=== PATIENT | female | born 1970 ===

== ENCOUNTER 2024-04-11 13:28 | Outpatient (AMB) | payer OTHER, SELFPAY ==
--- NOTE | 2024-04-11 13:47 | MHC.OFFWIV ---
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 Patient Tobacco Use Status: Never used Tobacco Allergies Penicillins Adverse Reaction (Mild, Verified 04/11/24 13:59) Unknown procaine Adverse Reaction (Verified 04/11/24 13:59) unknown HPI HPI Comments History of Present Illness Details History of Present Illness The patient is a 53-year-old female presenting with urinary symptoms possibly related to a urinary tract infection. She reports that since April 02, she has experienced a sensation of a full bladder but is unable to urinate upon reaching the bathroom. Subsequently, she has been consuming approximately three glasses of water at work, leading to urination every 10 to 15 minutes throughout the day. She attempted Persian herbal medication at home, which reduced urination frequency to approximately every one to two hours, though she continues to experience a persistent urge. She notes suprapubic bloating and tenderness. On the first day of symptoms, there was mild burning upon urination, but no fever. She denies new-onset low back pain beyond her chronic condition, which includes a herniated disc, and has no history of kidney stones. Allergy to penicillin has been noted based on prior advice from a doctor in [place], though she has no known reaction. A video interpretor was used for this visit Physical Exam General: Cooperative, healthy appearing, comfortable, no acute distress and well developed Orientation: Patient oriented x3 Limitations: non togolese speaking Head: Normal to inspection Ears: Hearing grossly normal bilaterally Nose: Normal external nose present Face and sinus: Normal facial exam Eyes: Appearance normal, both eyes and all related structures Neck: Normal visual inspection and Yes full ROM Respiratory: Normal respiratory effort and able to speak in complete sentences. GI: suprapubic ttp Back: negative CVA tenderness bilaterally Skin: No rashes or lesions noted Neuro: Patient oriented x3 Extremities: Normal to inspection PFSH Social History Patient Tobacco Use Status: Never used Tobacco Review of Systems Const All systems reviewed & are unremarkable except as noted in HPI and below Physical Exam Vital Signs: Last Vital Signs Pulse 112 H 04/11/24 13:53 BP 140/90 H 04/11/24 13:53 Pulse Ox 96 04/11/24 13:53 Oxygen Delivery Method Room Air 04/11/24 13:53 Assessment & Plan Assessment & Plan (1) UTI (urinary tract infection): Code(s): N39.0 - Urinary tract infection, site not specified Qualifiers: Urinary tract infection type: acute cystitis Hematuria presence: with hematuria Qualified Code(s): N30.01 - Acute cystitis with hematuria Plan: Plan - UA + leuks and blood, will treat. No culture indicated. - Prescribe a cephalosporin antibiotic to treat the suspected urinary tract infection, to be taken every 12 hours for 5 days. - Advise the patient to seek emergency care if she develops a fever, or if her pain escalates, indicating potential kidney stones. - Allergy to penicillin is acknowledged; caution is advised though cross-reactivity with cephalosporins is considered rare. - The antibiotic has been sent to [facility] for initiation of treatment. Patient was informed and verbally consented to the use of an ambient scribe for clinic note documentation during this visit. Medications: New cefuroxime axetil 500 mg PO Q12H 10 tabs 0RF Coding Level of Care Code New Pt Level 4 (43109) Diagnoses Acute cystitis with hematuria N30.01 Urinary tract infection type: acute cystitis Hematuria presence: with hematuria
[2024-04-11 13:53] VITALS: BP 140/90; PULSE 112; O2SAT 96
== END 2024-04-11 14:29 | disposition home or self-care (01) ==
PROVIDERS: Visit Provider Physician Assistant
DX: N30.01 Acute cystitis with hematuria (principal); Z13.9 Encounter for screening, unspecified

== ENCOUNTER → 2024-04-11 13:28 | Outpatient (BNVA) | payer OTHER, SELFPAY | PROVIDERS: Visit Provider Physician Assistant | DX: N30.01 Acute cystitis with hematuria (principal) | CPT/HCPCS: 81003 ==

== ENCOUNTER 2024-07-15 10:09 | Emergency (ER) | payer OTHER, SELFPAY ==
--- NOTE | 2024-07-15 10:30 | ED.NECK ---
HPI - Neck Pain/Injury General Chief Complaint: Skin/Abscess/Foreign Body Stated Complaint: FB IN THROAT, BREATHING NORMALLY,SAT 97% PER EMS Time Seen by Provider: 07/15/24 10:16 History of Present Illness HPI Narrative: Patient is a 54-year-old female with no significant past medical history patient was eating a piece of fish at 03:00 yesterday feels a foreign object stuck on the right side of her throat. Complaining of pain on swallowing. There is no difficulty with phonation. There is no difficulty with breathing. Patient is from home. Related Data Previous Rx's ?Medication ?Instructions ?Recorded cefuroxime axetil 500 mg tablet 500 mg PO Q12H #10 tabs 04/11/24 Allergies Allergy/AdvReac Type Severity Reaction Status Date / Time Penicillins AdvReac Mild Unknown Verified 07/15/24 10:39 procaine AdvReac unknown Verified 07/15/24 10:39 Review of Systems Review of Systems: Positive foreign body sensation to the back of the throat Yes all other systems are reviewed and are negative [facility] Past Medical History Attestation statement: The following information was validated with the patient. Social History Social History Patient Tobacco Use Status: Never used Tobacco Advance Directives: No Advance Directives Information Provided: Yes Physical Exam Vital Signs: Vital Signs: Last Vital Signs Temp 97.8 F 07/15/24 10:38 Pulse 83 07/15/24 10:38 Resp 16 07/15/24 10:38 BP 134/69 07/15/24 10:38 Pulse Ox 98 07/15/24 10:38 O2 Del Method Room Air 07/15/24 10:38 BMI result Body Mass Index 22.3 Appearance: Alert. Oriented X3. No acute distress. Eyes: Pupils equal, round and reactive to light. ENT: Pharynx normal. No foreign object observed. Neck: Normal inspection. Neck supple. No lymph nodes noted. No crepitus CVS: Normal heart rate and rhythm. Pulses normal. Normal S1 and S2 Respiratory: No respiratory distress. Breath sounds normal. No Wheezing. No rales Abdomen: Soft and nontender. No rigidity. No distention. good BS x4 Skin: Skin warm and dry. Normal skin color. Normal skin turgor. Extremities: No lower extremity edema. Neurovascular intact to all extremities. No Lacerations. No Rash Neuro: Oriented X 3. No motor deficit. No sensory deficit. Moving all extermities. No slurred speech Medications Administered Discontinued Medications Generic Name Dose Route Start Last Admin Trade Name Moustapha PRN Reason Stop Dose Admin Sodium Chloride 1,000 mls @ 999 mls/hr 07/15/24 10:30 07/15/24 11:18 Ns IV 07/15/24 11:30 999 mls/hr .Q1H1M BENITO Administration Medical Decision Making Medical Decision Making [facility] Narrative: Patient has a foreign body sensation to the back of the throat. I reviewed the x-ray report from urgent care question epiglottitis but the history not consistent as patient's symptoms only started after eating the fish. There is no fever no chills. No prodrome prior. Patient feels a foreign body sensation. Will unable to open the disc provided by urgent care. I spoke with Dr. Magaña from [facility] on-call at [facility]. Willing to see patient at 13:30 today. No ENT available at [facility]. Patient has no difficulty breathing. No difficulty with voice. Pain on swallowing. Differential Diagnosis Differential Diagnoses: The differential diagnosis associated with the presentation includes Admission/Observation Consideration of admission/observation: Escalation of care including admission/observation considered Consult Healthcare Provider Management of the patient was discussed with: Demand Planning Manager (ENT) Lab Data 07/15/24 10:53 07/15/24 10:53 Labs: Lab Results 07/15/24 Range/Units 10:53 RBC 4.84 (4.20-5.50) X10*6/uL Hgb 14.7 (12.0-16.0) g/dl Hct 41.3 (37.0-47.0) % MCV 85.3 (80.0-98.0) fL MCH 30.4 (27.0-33.0) pg MCHC 35.6 H (31.0-35.0) g/dl RDW 11.8 (11.0-16.0) % External Record Review External record reviewed: Office record Discharge Plan Discharge Clinical Impression: Foreign body in throat Patient Disposition: Home, Self-Care Instructions: Foreign Body Ingestion (ED) Additional Instructions: Please follow-up with ear nose and throat doctor at 13:30. The phone number given below. Prescriptions: No Action cefuroxime axetil 500 mg tablet 500 mg PO Q12H Qty: 10 0RF Referrals: Cole Sanches MD [Physician] - (Please follow-up today at 01:30 p.m.) Print Language: Cantonese Austrian
[2024-07-15 10:38] VITALS: BP 134/69; PULSE 83; RESP 16; TEMP 36.6; O2SAT 98; BMI 22.3
[2024-07-15] MEDS: 0.9 % Sodium Chloride 1,000 ML 999 ML IV (11:18)
[2024-07-15 11:38] LABS: Basophils Percent Auto 0.3 % (0-2); Eosinophils Absolute Auto 0.1 X10*3/uL (0.0-0.4); Hematocrit 41.3 % (37.0-47.0); Hemoglobin 14.7 g/dl (12.0-16.0); Imm Gran Abs Auto 0.01 X10*3/uL (0.00-0.03); Imm Gran Pct Auto 0.1 % (0.0-0.4); Lymphocytes Percent Auto 29.2 % (20-40); MANUAL DIFF FLAG SCAN; Mean Corpuscular HGB Conc 35.6 g/dl (31.0-35.0); Mean Corpuscular Hemoglobin 30.4 pg (27.0-33.0); Mean Corpuscular Volume 85.3 fL (80.0-98.0); Monocytes Absolute Auto 0.4 X10*3/uL (0.1-1.2); Monocytes Percent Auto 5.8 % (2-11); Neutrophils Absolute Auto 4.3 x10*3/uL (2.0-8.3); Neutrophils Percent Auto 63.6 % (45-73); PLT CLUMP 1; Red Blood Count 4.84 X10*6/uL (4.20-5.50); Red Cell Distribution Width 11.8 % (11.0-16.0); SCAN SMEAR FLAG 1
[2024-07-15 12:01] LABS: White Blood Count 6.8 X10*3/uL (4.8-10.8)
[2024-07-15 12:04] LABS: SLIDE REVIEW VERIFIED
== END 2024-07-15 13:48 | disposition home or self-care (01) ==
PROVIDERS: Emergency Provider Emergency Medicine Emergency Medical Services; PCP Registered Nurse
DX: T17.228A Food in pharynx causing other injury, initial encounter (principal); W44.F3XA Food entering into or through a natural orifice, initial encounter; Y93.9 Activity, unspecified; Y92.9 Unspecified place or not applicable; Y99.9 Unspecified external cause status
CPT/HCPCS: 36415; 85025; 99282; 99283

== ENCOUNTER 2025-02-06 08:19 | Outpatient (AMB) | payer OTHER, SELFPAY ==
[2025-02-06 08:22] VITALS: BP 122/80; PULSE 92; TEMP 36.6; O2SAT 98; BMI 22.3
--- NOTE | 2025-02-06 08:22 | MHC.OFFWIV ---
Intake Vital Signs 02/06/25 08:22 Height 5 ft Weight 114 lb BMI 22.3 BP 122/80 Blood Pressure Location Rt brachial Position Sitting Pulse 92 Pulse Source Pulse Oximeter Temp 97.8 F Pulse Oximetry (%) 98 Oxygen Delivery Method Room Air Intake Visit Reasons: EP-?uti Intake Note: Pt is here today c/o vaginal itchyness Patient Tobacco Use Status: Never used Tobacco Allergies Penicillins Adverse Reaction (Mild, Verified 02/06/25 08:23) Unknown procaine Adverse Reaction (Verified 02/06/25 08:23) unknown Medication List - Last Reviewed 02/06/25 by Mary Bach CMA amlodipine 2.5 mg PO DAILY irbesartan 300 mg PO DAILY HPI EP-?uti HPI Details History of Present Illness The patient is a 54-year-old female presenting with pelvic pressure and urinary symptoms. Pelvic pressure and urinary symptoms: - The patient reports experiencing pelvic pressure and issues related to urination. - Symptoms include a feeling of needing to urinate frequently, sometimes every one to two hours. - There is a sensation of incomplete bladder emptying and the constant urgency to urinate. - This condition has been ongoing for approximately one year, initially resolving last year before recurring. - There is an absence of pain, burning, or blood in the urine. Medical History: - Hypertension, treated with Amlodipine and Irbesartan. Problem List - Pelvic pressure and urinary symptoms - Hypertension Plan - Prescribed Detrol 2 mg capsules daily for bladder relaxation to alleviate urinary symptoms until specialist consultation. - Recommended an ultrasound to be performed under specialist management for further investigation of urinary symptoms. - Confirmed that there is no current infection affecting the urinary symptoms. - Noted upcoming urology appointment for specialized evaluation and care. - Patient is currently handling blood pressure well under current regimen of Amlodipine and Irbesartan. 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 motor intact Skin: Normal turgor PFSH Social History Patient Tobacco Use Status: Never used Tobacco Physical Exam Vital Signs: Last Vital Signs Temp 97.8 F 02/06/25 08:22 Pulse 92 02/06/25 08:22 BP 122/80 02/06/25 08:22 Pulse Ox 98 02/06/25 08:22 Oxygen Delivery Method Room Air 02/06/25 08:22 BMI result Body Mass Index 22.3 Results AMB Urinalysis, Automated UA Leukoctes 0 Twin/uL Last Edit by Mary Bach CMA on 02/06/25 08:47 UA Nitrite Negative Last Edit by Mary Bach, PENNY on 02/06/25 08:47 UA Urobilinogen 0.2 mg/dL Last Edit by Mary Bach, PENNY on 02/06/25 08:47 UA Protein 0 mg/dL Last Edit by Mary Bach, DIRECTOR OF VOCATIONAL TRAINING on 02/06/25 08:47 UA pH 6.0 Last Edit by Mary Bach, DIRECTOR OF VOCATIONAL TRAINING on 02/06/25 08:47 UA Blood 0 Alex/uL Last Edit by Mary Bach, DIRECTOR OF VOCATIONAL TRAINING on 02/06/25 08:47 UA Specific [place] 1.005 Last Edit by Mary Bach, PENNY on 02/06/25 08:47 UA Ketone Negative Last Edit by Mary Bach, PENNY on 02/06/25 08:47 UA Bilirubin 0 mg/dL Last Edit by Mary Bach, DIRECTOR OF VOCATIONAL TRAINING on 02/06/25 08:47 UA Glucose 0 mg/dL Last Edit by Mary Bach, DIRECTOR OF VOCATIONAL TRAINING on 02/06/25 08:47 Results Reviewed Results Reviewed: Laboratory Last Values Urine pH (Auto) 6.0 02/06/25 08:28 Specific [place] (Auto) 1.005 02/06/25 08:28 Urine Protein (Auto) 0 mg/dL 02/06/25 08:28 Glucose (UA)(Auto) 0 mg/dL 02/06/25 08:28 Urine Ketones (Auto) Negative 02/06/25 08:28 Urine Blood (Auto) 0 Alex/uL 02/06/25 08:28 Urine Nitrite (Auto) Negative 02/06/25 08:28 Urine Bilirubin (Auto) 0 mg/dL 02/06/25 08:28 Urine Urobilinogen (Auto) 0.2 mg/dL 02/06/25 08:28 Leukocyte Esterase (Auto) 0 Twin/uL 02/06/25 08:28 Assessment & Plan Assessment & Plan (1) Urinary urgency: Code(s): R39.15 - Urgency of urination (2) Polyuria: Code(s): R35.89 - Other polyuria Plan Pelvic pressure and urinary symptoms: - The patient reports experiencing pelvic pressure and issues related to urination. - Symptoms include a feeling of needing to urinate frequently, sometimes every one to two hours. - There is a sensation of incomplete bladder emptying and the constant urgency to urinate. - This condition has been ongoing for approximately one year, initially resolving last year before recurring. - There is an absence of pain, burning, or blood in the urine. Medical History: - Hypertension, treated with Amlodipine and Irbesartan. Problem List - Pelvic pressure and urinary symptoms - Hypertension Plan - Prescribed Detrol 2 mg capsules daily for bladder relaxation to alleviate urinary symptoms until specialist consultation. - Recommended an ultrasound to be performed under specialist management for further investigation of urinary symptoms. - Confirmed that there is no current infection affecting the urinary symptoms. - Noted upcoming urology appointment for specialized evaluation and care. - Patient is currently handling blood pressure well under current regimen of Amlodipine and Irbesartan. Orders: Orders AMB Urinalysis Automated Today Rachelle Prince PA-C Z13.9 - Encounter for screening, unspecified Medications: New tolterodine ER 2 mg PO DAILY 30 caps 0RF Erwin Roman MD Coding Level of Care Code Est Pt Level 3 (37428) Diagnoses Urinary urgency R39.15 Polyuria R35.89
--- OUTSIDE RECORDS SUMMARY | 2025-02-06 08:36 | XMS_ITS | Clinical Summary ---
Author Organization [employer] Address [address] [place] [address] [address] [place] [address] Care Team Providers Care Folder Inspector Name Role Phone Unavailable Primary Care Provider Unavailabl e Social History Tobacco Use Types Packs/Day Years Used Date Smoking Tobacco: Never Assessed Comments Unknown Sex and Gender Information Value Date Recorded Sex Assigned at Female 12/27/2023 4:17 PM EDT Legal Sex Female 4:17 PM EDT Gender Identity Not on file Sexual Orientation Not on file Plan of Treatment Health Maintenance Due Date Last Done Comments CT Colonography 1969 Colonoscopy 1969 Colorectal Cancer Screening 1969 Depression Screening 1969 FIT DNA/Cologuard 1969 FIT 1969 FOBT 1969 HIV Screening 1969 SDOH Screening 1969 Sigmoidoscopy 1969 Disability Screening 1969 Alcohol/Substance Use Screening 1981 Tobacco Screening 1981 Hepatitis C Screening 1987 DTaP/Tdap/Td Vaccines (1 - Tdap) 1988 Hepatitis B Vaccines (1 of 3 - 19+ 3-dose series) 1988 Pap Smear 1990 Cervical Cancer Screening 1999 HPV/Cotest 1999 Mammogram 2009 Pneumococcal Vaccine: 50+ Ye ars (1 of 1 - PCV) 2019 Zoster Vaccines (1 of 2) 2019 COVID-19 Vaccine ( - 2023-2 5 season) 2024 Influenza Vaccine (#1) 2024 RSV Patients and Pa tients Aged 60 years or older (1 - 1-dose 75+ series) 2044 HIB Vaccines Aged Out No longer eligi ble based on patient's age to complete this topic HPV Vaccines Aged Out No longer eligi ble based on patient's age to complete this topic Hepatitis A Vaccines Aged Out No long er eligible based on patient's age to complete this topic IPV Vaccines Aged Out No longer eligi ble based on patient's age to complete this topic Meningococcal B Vaccine Aged Out No l onger eligible based on patient's age to complete this topic Meningococcal Vaccine Aged Out No gerardo sylvester eligible based on patient's age to complete this topic RSV under 20 months Aged Out No longe r eligible based on patient's age to complete this topic Rotavirus Vaccines Aged Out No longer eligible based on patient's age to complete this topic Insurance [employer]
--- OUTSIDE RECORDS SUMMARY | 2025-02-06 08:36 | XMS_ITS | Data Portability ---
Author Organization [place] - [facility], [facility] Address [address] [place] [id number] Care Team Providers Care Plumbing Mechanic Name Role Phone ZEE BOYER Primary Care Provider Assessment No assessment recorded. Plan of Treatment Reminders Order Date Submit Date Provider Last Modified By Organization Details Last Modified Time Details Appointments None record ed. Lab None record ed. Referral None record ed. Procedures None record ed. Surgeries None record ed. Imaging None record ed. Medication Orders None record ed. Patient TargetsNo targets recorded. Patient InstructionsNo instructions recorded. Reason for Referral None Reported. Problems Name Problem SNOMED Code Status Onset Date Resolution Date Notes Provider Name and Address Organization Details Recorded Time Feeling of lump in throat 376539264 Active 025 JOSE R MULLINS MD [address] [place] [address], [phone] , [facility] - [facility] 5 14:25:54 Foreign body in pharynx 45131742 Active 025 JOSE R MULLINS MD [address] [place] [address], [phone] , [facility] - [facility] 5 14:37:01 Problem Notes None recorded. Procedures Surgical History Date Name Laterality Status Provider Name and Address Organization Details Recorded Time 07/15/2024 FFL_RE completed JOSE R MULLINS MD [address] [place] [address], [phone], [facility] - [facility] 07/15/2024 14:41:51 Imaging Results None recorded. Procedure Notes None recorded. Medical Equipment None Reported. Medications Name Sig Start Date Stop Date Status Note LastModified by Organization Details LastModified Time cefuroxime axetil 500 mg tablet TAKE 1 TABLET BY MOUTH EVERY 12 HOURS active Not Available Not Available No t Available Vitals None Recorded Social History None recorded. Functional Status None recorded. Mental Status None recorded. Family History Nothing Reported. Medical History No medical history recorded. Gynecological HistoryNo gynecological history recorded. Obstetrics History GPAL:G 0 P 0 0 0 0 Past Encounters Encounter ID Performer Location Encounter Start Date Encounter Closed Date Diagnosis/Indication Diagnosis SNOMED-CT Code Diagnosis ICD10 Code Diagnosis IMO Codes Diagnosis Note [id number] JOSE R MULLINS MD [facility] [address] [phone] 07/15/2024 13:34:59 07/15/2024 14:36:52 Foreign body in pharynx [id number] T17.208A I was able to remove the fishbone using transnasal fiberoptic laryngosco py and passing a hemostat through the mouth to the base of tongue and retrieving the fishbone under direct visualizat ion. I repeated laryngosco py and no additional foreign bodies were noted. She reported her globus sensation had improved. She may follow-up as needed. Feeling of lump in throat [id number] R09.89 see above Health Concerns Section Related Observation LastModified by Organization Detai ls LastModified Time None Recorded Concern Status LastModified by Organization Details LastModified Time None Recorded Advance Directives Directive None Recorded Payers Insurance Date Sequence Insurance Name Policy Number Policy Chacon Covered Member ID Chacon Member ID Guarantor Name 07/15/2024 1 [facility] PUBLIC [facility]ANS [facility] DIRECT [facility] TYPE I (HMO) [id number] [facility] [id number] [place] Notes Date Note Type Note Provider Name and Address Organization Details Recorded Time 07/15/2024 text/html ROS as noted in the HPI She presented to [facility] today. I spoke with the ER doctor who reported that she was eating fish and felt like she had a fishbone lodged in her throat. She ate fish at 3 PM yesterday. She feels it more on the left side. They obtained an x-ray at [facility] which was indeterminate but showed a possible foreign body. She was referred for direct inspection. She has some pain when she swallows. She is able to eat and drink. JOSE R MULLINS MD [address] [place] [address], [place], [phone], [facility] - [facility] 07/15/2024 14:41:57 OBGyn Episode No OBEpisode recorded.
== END 2025-02-06 08:51 | disposition home or self-care (01) ==
PROVIDERS: PCP Registered Nurse; Visit Provider Internal Medicine
DX: R39.15 Urgency of urination (principal); R35.89 Other polyuria; Z13.9 Encounter for screening, unspecified

== ENCOUNTER → 2025-02-06 08:19 | Outpatient (BNVA) | payer OTHER, SELFPAY | PROVIDERS: PCP Registered Nurse; Visit Provider Internal Medicine | DX: R39.15 Urgency of urination (principal); R10.20 Pelvic and perineal pain unspecified side; R33.9 Retention of urine, unspecified; R35.89 Other polyuria | CPT/HCPCS: 81003 ==